=== PATIENT | female | born 1970 | race Caucasian/White ===

== ENCOUNTER 2020-09-21 07:57 | Inpatient (IN) | payer OTHER ==
[~2020-09-21] VITALS: Ht 165.1 cm; Wt 70.0 kg
[~2020-09-21 07:57] MED LIST: BACTRIM DS1 TAB OR; NAPROSYN500 MG PO; NO; OMEPRAZOLE20 MG PO
--- NOTE | 2020-09-21 07:57 | NUR ---
PT ARRIVES VIA EMS STRETCHER TO ROOM # 11.
[2020-09-21 08:44] LABS: HEMATOCRIT 32.2 % (37.0-47.0); HEMOGLOBIN 10.1 g/dl (12.0-16.0); IMMATURE GRANULOCYTES 0.5 % (0.0-5.0); MEAN CELL VOLUME 95.3 fL CALC (80.0-100.0); MEAN CORPUSCULAR HGB 29.9 pG CALC (26.0-32.0); MEAN CORPUSCULAR HGB CONC 31.4 g/dL CAL (32.0-36.0); NEUT# 2.36 thou/uL (2.00-7.15); RED BLOOD COUNT 3.38 mill/uL (4.20-5.60); RED CELL DISTRI WIDTH 14.8 % (11.5-15.5)
--- NOTE | 2020-09-21 09:00 | NUR ---
0758 - PATIENT ARRIVED VIA EMS STRETCHER,IGEL IN PLACE. PULSE PALPATED. MD AT BEDSIDE BP:109/69, HR 57. O2 SAT 100% WITH MANUAL AMBU BAG.RT AT BEDSIDE. 0805: Intubated by RT.
[2020-09-21 09:08] LABS: ALBUMIN 3.9 g/dL (3.2-5.0); ALKALINE PHOSPHATASE 86 u/l (38-126); BILIRUBIN, TOTAL 0.3 mg/dL (0.0-1.4); BUN 9 mg/dL (7-17); BUN/CREATININE RATIO 10 (12-20 (CALC)); CARBON DIOXIDE 20 mmol/l (22-30); CHLORIDE 100 mmol/l (95-108); CREATININE 0.9 mg/dL (0.5-1.0); GFR > 60 ML/MIN (>=60 (CALC)); GFR FOR AFR.AMER. > 60 ML/MIN (>=60 (CALC)); SGOT/AST 105 u/l (14-36); SODIUM 135 mmol/l (137-146); TOTAL PROTEIN 7.3 g/dL (6.3-8.2)
--- NOTE | 2020-09-21 09:09 | NUR ---
0805: INTUBATED BY RT WITH A 7.5 ROMANSH ET TUBE AT 22 AT LIP after Rakesh given. 0810: Medicated with [id number] FOR OCCASSIONAL EMESIS. SUCTION NEEDED. 0812: IV DIPROVAN STARTED AT 30 MCG. 0825 PAORTABLE XRAY COMPLETED 08 RT TOO BEDSIDE,ADVANCES ETT TO 24 AT THE LIP. 0830 16 FR COTTRELL INSERTED USING STERILE TECHNIQUES. IMMEDIATE RETURN OF CLEAR URINE. 0835 ABG COMPLETED. 0837: IZZY CARE AND LINEN CHANGE. 0840 NG #16 FR INSERTED IN RIGHT NARE. PLACEMENT VERIFIED BY 2 RNS. 0847; URINE TO LAB. 0900: MD TO BEDSIDE. BP NOTED TO BE 54/30. ORDERS GIVEN. 0905: IV #20 IN RIGHT WRIST COMMENCED. 09: DIPROVAN DECREASED TO 15MCG BY RN.
[2020-09-21 09:10] LABS: ANION GAP 18 (6-22 (CALC))
[2020-09-21 09:12] LABS: INTERNATIONAL NORMALIZED RATIO 1.1 RATIO (0.7-1.3); PROTHROMBIN TIME 11.1 SECONDS (9.0-12.5)
--- NOTE | 2020-09-21 09:25 | NUR ---
Provider at bedside to evaluate. BP 63/34. PHENELYPHTINE HCL COMMENCED IV.
[2020-09-21 09:27] LABS: ETHYL ALCOHOL 355 mg/dl (0-30)
[2020-09-21 09:45] LABS: URINE BILIRUBIN - DIPSTICK NEGATIVE (NEGATIVE); URINE BLOOD DIPSTICK NEGATIVE (NEGATIVE); URINE CLARITY CLEAR; URINE COLOR YELLOW; URINE GLUCOSE - DIPSTICK NEGATIVE (NEGATIVE); URINE KETONE NEGATIVE (NEGATIVE); URINE LEUK ESTERASE NEGATIVE (Negative); URINE NITRITE - DIPSTICK NEGATIVE (Negative); URINE PROTEIN - DIPSTICK NEGATIVE (NEG-TRACE); URINE SPECIFIC GRAVITY <=1.005; URINE UROBILINOGEN - DIPSTICK 0.2 E.U./dL (0.2)
--- NOTE | 2020-09-21 09:51 | NUR ---
BP IMPROVED, MAP >60 SEE VS INTERVENTION FOR DETAILS.
--- NOTE | 2020-09-21 10:38 | NUR ---
RESPIRATORY AND ELEVATOR MECHANIC PRESENT TO TAKE PATIENT TO CT. PATIENT STABLE. PATIENT A BIT RESTLESS. DIPROVAN INCREASED TO 30MCG. CARDIAC MONIOTORING CONTINUES.
--- NOTE | 2020-09-21 11:10 | NUR ---
RETURNED FROM XRAY. PATIENT STABLE. MONITORING OF V/S CONTINUES.
--- NOTE | 2020-09-21 11:15 | NUR ---
PATIENT NOTED TO BE RESTLESS. DIPROVAN INCREASED TO 40MCG.BP: 110/63,P-72
--- NOTE | 2020-09-21 11:45 | NUR ---
Pateint resting quietly. Slight movements at times. Bp 83/40,p-71. Diprovan decreased to 25 mcg following consultation with charge nurse.
--- NOTE | 2020-09-21 11:55 | NUR ---
PATIENT NOTED TO BE RESTLESS AND REQUIRING SUCTION. CHARGE NURSE TO BEDSIDE TO ASSIST. BP: 79/40, P-61 Phenylephrine increased titration to 0.5 mcg. Diprovan incaresaed to 40 mcg. Respiratory notified.
--- NOTE | 2020-09-21 12:50 | NUR ---
DR BUCHANAN [facility] FOR EVAL.
--- NOTE | 2020-09-21 13:31 | NUR ---
FIO2 DECREASED TO 40%
--- NOTE | 2020-09-21 14:20 | NUR ---
PATIENT TRANSFERRED TO TRANSPORT ROOM CARE.
--- NOTE | 2020-09-21 15:07 | NUR ---
RT AT BEDSIDE. PATIENT STABLE.
--- NOTE | 2020-09-21 15:25 | NUR ---
PT ON PROPOFOL AND REMAINS FIDGETY AND ANXIOUS AWARE AND NEW ORDERS REC'D WILL MEDICATE ORDERED
--- NOTE | 2020-09-21 15:25 | NUR ---
MORPHINE 2MG IVP FOR S/S 10/10 GENERALIZED PAIN.
--- NOTE | 2020-09-21 15:35 | NUR ---
MIDAZOLAM GTT INITIATED PER PROTOCOL.
--- NOTE | 2020-09-21 15:36 | NUR ---
ATIVAN GTT INITIATED PER PROTOCOL.
--- NOTE | 2020-09-21 16:00 | NUR ---
PATIENT MONITORING CONTINUES. IV SITES INTACT AND HEALTHY WHEN EVALUATED HOURLY. COTTRELL CATHETER EMPTIED FOR 1000 CC CLEAR URINE.
--- NOTE | 2020-09-21 16:30 | NUR ---
PATIENT RESTING. MONITORING CONTINUES.
--- NOTE | 2020-09-21 17:00 | NUR ---
PATIENT QUIET. NO DISTRESS. MONITORING CONTINUES
--- NOTE | 2020-09-21 17:42 | NUR ---
ball drained 1000cc clear urine
--- NOTE | 2020-09-21 18:31 | NUR ---
PATIENT RESTING QUIETLY. NO DISTRESS. CARDIAC MONITORING CONTINUES WITH RESULTS WNL, IV SITES HEALTHY. COTTRELL INTACT AND DRAINING CLEAR URINE.
--- NOTE | 2020-09-21 18:50 | NUR ---
REPORT GIVEN TO RAFAT LY.
--- NOTE | 2020-09-21 18:56 | NUR ---
RECUMBENT W/P/D SKIN F PT ON VENT AC 16/M [id number] FIO2 40% CECILIA AT 2CM COTTRELL HAS 300CC LT YELLOW DRAINAGE.PT HAS SOFT BILAT WRIST RESTRAINTS.CLDEAR BILAT BREATH SOUNDS.ABD SOFT NONTENDER ACTIVE SOUNDS X2 IV PROPOFOL DRIP TO #18 LAC AT 70MCG/KG/MIN.MIDAZOLAM DRIP 10MLS MID/100CC NS AT 10MLS/HR #22 RAC.PHENYLEPHRINE [id number] NSS AT 52.5 ML/HR #20 RW
--- NOTE | 2020-09-21 19:38 | NUR ---
NG IS TO LIS NO LIQUIDS IN SUCTION CANISTER AT THIS TIME.CLEAR BILAT BREATH SOUNDS.
--- NOTE | 2020-09-21 20:10 | NUR ---
PT TRANSFERREWD TO HOSP BED
--- NOTE | 2020-09-21 21:10 | NUR ---
REPOSITIONED TO R SIDE SR NO ST T CHANAGES VENT TO ET TUBE FIO2 40% CLEAR BILOAT BREAT SOUNDS.W/P/D SKIN
--- NOTE | 2020-09-21 21:35 | NUR ---
SR NO ECTOPY SEDATED PEDRLA AT 2CMS WARM BLANKET APPLIED.
--- NOTE | 2020-09-21 22:49 | NUR ---
CLEAR BILAT BREATH SOUNDS SR NO ST T CHANGES NO ECTOPY W/P/D SKIN.
--- NOTE | 2020-09-21 23:15 | NUR ---
TURNED TO L SIDE LYING SR NO ECTOPY SEDATED CECILIA. DRIPS X3 RATES UNCHANGED
[2020-09-22] VITALS (13 sets, daily range): BP systolic 85–148; BP diastolic 33–106
--- NOTE | 2020-09-22 01:00 | NUR ---
TURENED TO R SIDE LYING SR NO ST T CHANGES BILAT BREATAH SOUNDS CLEAR .COTTRELL DRAINS YELLOW URINE QS
--- NOTE | 2020-09-22 02:05 | NUR ---
W/P/D SKIN SR NO ST T CHANGES.PT OCC PULLS AAT SOFT WRIST RESTRAINS
--- NOTE | 2020-09-22 03:00 | NUR ---
W/P/D SKIN TURNED R SIDE LYING SR NO ECTOPY CECILIA.
--- NOTE | 2020-09-22 04:10 | NUR ---
W/P/D SKIN CLEAR BILAT BREATAH SOUNDS.CECILIA
--- NOTE | 2020-09-22 05:00 | NUR ---
SEDAATED W/P/D SKIN BREAATH SOUNDS CLEAR
--- NOTE | 2020-09-22 05:54 | NUR ---
SUCTIONED PER ET FOR MOD AMT KO SECRETIONS.TURNED R SIDE LYING
[2020-09-22 06:43] LABS: HEMATOCRIT 33.3 % (37.0-47.0); HEMOGLOBIN 10.7 g/dl (12.0-16.0); MEAN CELL VOLUME 95.4 fL CALC (80.0-100.0); MEAN CORPUSCULAR HGB 30.7 pG CALC (26.0-32.0); MEAN CORPUSCULAR HGB CONC 32.1 g/dL CAL (32.0-36.0); RED BLOOD COUNT 3.49 mill/uL (4.20-5.60); RED CELL DISTRI WIDTH 15.2 % (11.5-15.5)
[2020-09-22 06:58] LABS: ALBUMIN 3.6 g/dL (3.2-5.0); ALKALINE PHOSPHATASE 100 u/l (38-126); ANION GAP 12 (6-22 (CALC)); BILIRUBIN, TOTAL 0.4 mg/dL (0.0-1.4); BUN 9 mg/dL (7-17); BUN/CREATININE RATIO 14 (12-20 (CALC)); CARBON DIOXIDE 23 mmol/l (22-30); CHLORIDE 108 mmol/l (95-108); CREATININE 0.6 mg/dL (0.5-1.0); GFR > 60 ML/MIN (>=60 (CALC)); GFR FOR AFR.AMER. > 60 ML/MIN (>=60 (CALC)); MAGNESIUM 1.7 mg/dL (1.6-2.3); SGOT/AST 71 u/l (14-36); SODIUM 139 mmol/l (137-146); TOTAL PROTEIN 7.1 g/dL (6.3-8.2)
[2020-09-22 06:59] LABS: POTASSIUM 3.8 mmol/l (3.5-5.1)
--- NOTE | 2020-09-22 07:07 | NUR ---
PTR REPORT TO MALACHI BEARDEN
--- NOTE | 2020-09-22 07:25 | NUR ---
PTRESTING INB ED, INTUBATED WITH 7.5 ETT TAPED AT 24 AT THE LIP SEE FLOW SHEET FOR VENT SETTINGS, RESTRAINTS IN PLACE TO PREVENT SELF EXTUBATION, VS STABLE, PROPOFOL, VERSED AND PHENYLNEPHRINE INFUSING PER RPROTOCOL SEE INTERVENTION FOR DETAILS, COTTRELL CATH INTACT DRAINING CLEAR YELLOW URINE AND NG INTACT IN R NARE WITH MINIMAL CLEAR DRNG. ORALLY SUCTIONED PRN, NO S/S OF PAION NOTED, CALL CHEN WIHTIN REACH, TURNED Q2H WITH ORAL CARE PROVIDED, EASILY VISIBLE FROM NURSES STATION FOR SAFETY, WILL CONTINUE TO MONITOR
--- NOTE | 2020-09-22 09:40 | NUR ---
PT EXTUBATED , R.T REMAINS AT BEDSIDE PT TOLERATED W/O INCIDENT, NG REMIANS INTACT, WILL CONTINUE TO MONITOR CLOSELY
--- NOTE | 2020-09-22 09:40 | NUR ---
PT EXTUBATED AND PLACED ON 2L NC
--- NOTE | 2020-09-22 10:27 | NUR ---
POLICE AT BEDSIDE TO SPEAK WITH PT
--- NOTE | 2020-09-22 11:57 | NUR ---
FLU AND COVID SWABS OBTAINED PT REMAINS ON ISOLATION
--- NOTE | 2020-09-22 13:04 | NUR ---
PT DOZING INTERMITTENLY, AROUSES TO VERBAL STIMULI, NO NEW COMPLAINTS, OFFERED, TAKING SIPS OF WATER WITHOUT INCIDENT.
--- NOTE | 2020-09-22 14:15 | NUR ---
PT RESTING REMAINS DROWSY BUT AROUSES TO VERBAL STIMULI AND ANSWERS QUESTIONS APPROPRIAETLY, CONTINEUS TO HAVE MINIMAL DIFFICULTY TALKING RELATED TO EXRTUBATION. SATS MAINTAINED AT 99-100% ON 2L WITH NO SOB OR DISTRESS NOTED. CALL CHEN WITHIN REACH
--- NOTE | 2020-09-22 15:24 | NUR ---
PT RESTING AWARE OF PLANNED ADMISSION TO MED SURG NOW NO TELE, OFFERS NO NEW COMPLAINTS, REMAINS DROWSY BUT AROUSABLE
--- NOTE | 2020-09-22 16:05 | NUR ---
REPORT CALLED TO GARY ON MED SURG ROOM 260 ASSIGNED
--- NOTE | 2020-09-22 16:13 | NUR ---
PT ARRIVED TO [facility] ROOM 260 VIA BED IN STABLE CONDITION ACCOMPAINED BY ER STAFF. WRITTER INFORMED THAT PT WILL BE PLACE IN ROOM 260 DESPITE IGG POSITIVE BEACUSE PT HAS HAD NO SYMPTOMS UPON ADMINISION BY ER STAFF AND GROUP CIO. INTRODUCED SELF TO PT AND DISCUSSED POC. PT IS A/O BUT DROWSY. ASSESSMENT AND VITALS OBATINED. BP 118/73, HR 86, O2 98% ON ROOM AIR. RESPIRATIONS ARE EVEN AND UNLABORED ON ROOM AIR. PT COMPLAINS OF DISCOMFORT IN THROAT AND CHEST. WRITTER EXPLAINED THAT THE DISCOMFORT WILL BE THERE FOR A WHILE DUE TO BEING INTUBATED. HEART RHYTHM NORMAL. BOWEL SOUNDS ARE ACTIVE. LAST BM UNKNOWN. #22G IN LAC; #22G IN RAC, #22G IN RAC FLUSHED, ALL SITE APPEARS HEALTHY AND PATENT. PT PRESENTS WITH SMALL BUMP/STYE. PT INFORMS WRITTER THAT SHE DID NOT HAVE IT BEFORE THE ACCIDENT. PICTURES TO BE OBTAINED. PT DENIES ANY ADDITIONAL NEEDS AT THIS TIME. ALL SAFETY PRECAUTIONS ARE IN PLACE WITH CALL LIGHT IN REACH.DOOR TO REMAIN CLOSED. WILL CONTINUE TO MONITOR
--- NOTE | 2020-09-22 16:15 | NUR ---
PT TRANSFERRED TO MED SURG VIA BED, ALL BELONGINGS SENT WITH PATIENT. RECIEVING NURSE AT BEDSIDE ON ARRIVAL
--- NOTE | 2020-09-22 18:15 | NUR ---
PHOTOS OF RIGHT EYE OBTAINED AND PLACED IN CHART. PT REFUSES DINNER TRAY STATING " I CANT EAT THAT, MY THOART IS TOO SORE." SOFT TRAY OFFERED. PT REFUSED. PT REQUESTED ICE CREAM. COTTRELL CATHATER REMAINS IN PLACE WITH TUBING UNOBSTRUCTED. PT DENIES ANY ADDITIONAL NEEDS AT THSI TIME. ALL SFAETY PRECAUTIONS ARE IN PLACE WITH CALL LIGHT IN REACH. WILL CONTINUE TO MONITOR
--- NOTE | 2020-09-22 20:01 | NUR ---
PHYSICAL ASSESMENT COMPLETE. PT CURRENTLY DENIES PAIN OR DISCOMFORT. SCHEDULED MEDICATIONS AND PRN MEDICATION ADMINISTERED, SEE E-MAR. PT DENIES ANY NEEDS AT THIS TIME. PLAN OF CARE REVIEWED, PT DENIES QUESTIONS, VERBALIZES UNDERSTANDING. ITEMS WITHIN REACH, BED LOCKED IN LOW POSITION W/ BEDRAILS UP X2. CALL CHEN WITHIN REACH, AGREES TO CALL PRN.
--- NOTE | 2020-09-23 00:01 | NUR ---
PT LAYING IN BED WITH EYES CLOSED, APPEARS TO BE SLEEPING, APPEARS COMFORTABLE AND IN NO DISTRESS. RESPIRATIONS REGULAR AND UNLABORED. ITEMS REMAIN WITHIN REACH, CALL CHEN REMAINS WITHIN REACH. BED REMAINS LOCKED AND IN LOW POSITION WITH BEDRAILS UP X2. WILL CONTINUE TO MONITOR.
[2020-09-23 04:00] VITALS: BP 132/79
--- NOTE | 2020-09-23 04:01 | NUR ---
PT RESTING IN BED, NO SIGNS OF DISTRESS NOTED, RESP EVEN AND UNLABORED. PT VOICES NO NEEDS OR COMPLAINTS AT THIS TIME. CALL LIGHT IN REACH,CONTINUE TO MONITOR.
--- NOTE | 2020-09-23 07:15 | NUR ---
Patient is screened for PT intervention and no needs are identified at this time
[2020-09-23 07:46] VITALS: BP 117/72
--- NOTE | 2020-09-23 07:46 | NUR ---
PATIENT IN BED AT THIS TIME CALL LIGHT NEAR, SIDERAILS UP X2. PATIENT EDUCATED ON USING CALL LIGHT WHEN GETTING UP TO GO TO THE BATHROOM. PATIENT EMS LAC IV SITE REMOVED WITHOUT ANY ISSUES. PATIENT VERBALIZES ALL INSTRUCTIONS AND DENIES ANY NEEDS AT THIS TIME. PATIENT DOES EXHIBIT DRY COUGH AT THIS TIME/NON PRODUCTIVE.
--- NOTE | 2020-09-23 08:05 | NUR ---
AT BEDSIDE DISCUSSING POC.
--- NOTE | 2020-09-23 12:00 | NUR ---
PATIENT UP TO BATHROOM WITH ASSIST BY MALACHI BO. PATIENT VOIDED 450 ML OF YELLOW URINE AT THIS TIME. PATIENT DENIES ALL NEEDS AND STATED IT FEELS GOOD TO GET UP AND MOVE AROUND". PATIENT ASSISTED BACK TO BED AT THIS TIME.
--- NOTE | 2020-09-23 14:05 | NUR ---
PATIENT D/C AT THIS TIME. PATIENT VERBALIZES UNDERSTANDING OF D/C INSTRUCTIONS.
--- NOTE | 2020-09-23 14:37 | NUR ---
Discharge instructions given. Patient verbalizes understanding of same. Discharged in stable condition via Wheelchair to Home with family. All belongings sent with pt. PT TRANSPORTED TO [facility] IN STABLE CONDITION VIA WHEELCHAIR ACCOMPANIED BY FAMILY MEMBER AND JOSÉ MIGUEL SCALES. ALL BELONGINGS LEFT WITH PT.FAMILY MEMBER TO TRANSPORT HOME.
== END 2020-09-23 14:37 | disposition home or self-care (01) | DRG 208 ==
LOC: EDBD 07:57 → ED 07:57 → ED-I 12:37 → ED 13:14 → ED-I 13:15 → MS2 13:15 → ICU 09-22 13:43 → MS2 09-22 16:16
PROVIDERS: Emergency Medicine; ADMIT Internal Medicine; ATTEND Internal Medicine
PROC: 5A1945Z Respiratory Ventilation, 24-96 Consecutive Hours (ICD-10-PCS; principal; 2020-09-21)
PROC: 0BH17EZ Insertion of Endotracheal Airway into Trachea, Via Natural or Artificial Opening (ICD-10-PCS; 2020-09-21)
DX: J96.00 Acute respiratory failure, unspecified whether with hypoxia or hypercapnia (principal); G93.49 Other encephalopathy; F10.129 Alcohol abuse with intoxication, unspecified; Y90.8 Blood alcohol level of 240 mg/100 ml or more; F14.10 Cocaine abuse, uncomplicated; V49.40XA Driver injured in collision with unspecified motor vehicles in traffic accident, initial encounter
CPT/HCPCS: J1650; Q9967

== ENCOUNTER 2023-04-12 11:10 | Emergency (ER) | payer SELFPAY ==
[~2023-04-12] VITALS: Ht 165.1 cm; Wt 68.0 kg
[2023-04-12] VITALS (16 sets, daily range): BP systolic 125–163; BP diastolic 69–99
[2023-04-12 12:14] LABS: BASO% 0.2 % (0-3); EOS% 1.1 % (0-8); IMMATURE GRANULOCYTES 0.2 % (0.0-5.0); LYMPH% 20.2 % (15-41); MEAN CORPUSCULAR HGB 30.9 pG CALC (26.0-32.0); MEAN CORPUSCULAR HGB CONC 31.2 g/dL CAL (32.0-36.0); MONO% 14.5 % (2-13); NEUT# 5.38 thou/uL (2.00-7.15); NEUT% 63.8 % (42-76); RED BLOOD COUNT 4.14 mill/uL (4.20-5.60)
[2023-04-12 12:20] LABS: HEMOGLOBIN 12.8 g/dl (12.0-16.0)
[2023-04-12 12:39] LABS: ALBUMIN 3.7 g/dL (3.2-5.0); ALKALINE PHOSPHATASE 175 u/l (38-126); ANION GAP 16 (6-22 (CALC)); BUN 14 mg/dL (7-17); BUN/CREATININE RATIO 20 (12-20 (CALC)); CARBON DIOXIDE 18 mmol/l (22-30); CHLORIDE 105 mmol/l (95-108); CREATININE 0.7 mg/dL (0.5-1.0); GFR FOR AFR.AMER. > 60 ML/MIN (>=60 (CALC)); GFR OTHER RACES > 60 ML/MIN (>=60 (CALC)); SGOT/AST 109 u/l (14-36); SODIUM 134 mmol/l (137-146); TOTAL PROTEIN 8.3 g/dL (6.3-8.2)
[2023-04-12 15:11] LABS: URINE BILIRUBIN - DIPSTICK NEGATIVE (NEGATIVE); URINE BLOOD DIPSTICK NEGATIVE (NEGATIVE); URINE COLOR YELLOW; URINE GLUCOSE - DIPSTICK NEGATIVE (NEGATIVE); URINE KETONE NEGATIVE (NEGATIVE); URINE LEUK ESTERASE NEGATIVE (NEGATIVE); URINE NITRITE - DIPSTICK POSITIVE (Negative); URINE PH 6.5 (4.5-8.0); URINE PROTEIN - DIPSTICK NEGATIVE (NEG-TRACE); URINE SPECIFIC GRAVITY <=1.005; URINE UROBILINOGEN - DIPSTICK 0.2 E.U./dL (0.2)
[2023-04-12 15:23] LABS: URINE BACTERIA MANY hpf; URINE SQUAMOUS EPITHELIAL CELL FEW EPI/hpf (0-FEW); URINE WBC 0-2 WBC/hpf (0-5)
== END 2023-04-12 22:43 | disposition short-term general hospital (02) | DRG 863 ==
LOC: ED 11:10 → MS2 14:30 → ED 14:30 → MS2 14:30 → ED 22:43
PROVIDERS: Nurse Practitioner
DX: T81.41XA Infection following a procedure, superficial incisional surgical site, initial encounter (principal); Y83.8 Other surgical procedures as the cause of abnormal reaction of the patient, or of later complication, without mention of misadventure at the time of the procedure; F17.200 Nicotine dependence, unspecified, uncomplicated; R82.71 Bacteriuria
CPT/HCPCS: Q9967

== ENCOUNTER 2023-04-20 01:22 | Emergency (ER) | payer SELFPAY ==
[~2023-04-20] VITALS: Ht 152.4 cm; Wt 85.0 kg
[2023-04-20 03:38] VITALS: BP 164/94
[2023-04-20] MEDS ORDERED: PROZAC20 MG PO (04:48)
[2023-04-20] MEDS ORDERED: KEFLEX500 MG PO (04:49)
== END 2023-04-20 03:38 | disposition home or self-care (01) | DRG 951 ==
LOC: ED 01:22
DX: Z48.01 Encounter for change or removal of surgical wound dressing (principal); F17.200 Nicotine dependence, unspecified, uncomplicated

== ENCOUNTER 2023-04-26 10:22 | Emergency (ER) | payer SELFPAY ==
[~2023-04-26] VITALS: Ht 152.4 cm; Wt 69.0 kg
[2023-04-26] VITALS (14 sets, daily range): BP systolic 129–166; BP diastolic 66–88
[~2023-04-26 10:22] MED LIST changes: +KEFLEX500 MG PO; +PROZAC20 MG PO
[2023-04-26 12:26] LABS: ALBUMIN 3.9 g/dL (3.2-5.0); BASO% 0.4 % (0-3); BILIRUBIN, TOTAL 0.6 mg/dL (0.02-1.3); CREATININE 1.5 mg/dL (0.5-1.0); EOS% 2.1 % (0-8); HEMATOCRIT 39.5 % (37.0-47.0); HEMOGLOBIN 12.8 g/dl (12.0-16.0); IMMATURE GRANULOCYTES 0.3 % (0.0-5.0); LYMPH% 28.2 % (15-41); MEAN CELL VOLUME 96.8 fL CALC (80.0-100.0); MEAN CORPUSCULAR HGB 31.4 pG CALC (26.0-32.0); MEAN CORPUSCULAR HGB CONC 32.4 g/dL CAL (32.0-36.0); MONO% 11.9 % (2-13); NEUT# 3.98 thou/uL (2.00-7.15); NEUT% 57.1 % (42-76); POTASSIUM 4.4 mmol/l (3.5-5.1); RED BLOOD COUNT 4.08 mill/uL (4.20-5.60); RED CELL DISTRI WIDTH 14.5 % (11.5-15.5); TOTAL PROTEIN 8.1 g/dL (6.3-8.2)
== END 2023-04-26 15:57 | disposition short-term general hospital (02) | DRG 603 ==
LOC: ED 10:22
PROVIDERS: Family Medicine
DX: L02.211 Cutaneous abscess of abdominal wall (principal); S31.115A Laceration without foreign body of abdominal wall, periumbilic region without penetration into peritoneal cavity, initial encounter; W26.9XXA Contact with unspecified sharp object(s), initial encounter
CPT/HCPCS: Q9967

== ENCOUNTER 2023-05-06 22:21 | Emergency (ER) | payer SELFPAY ==
[~2023-05-06] VITALS: Ht 152.4 cm; Wt 70.0 kg
[2023-05-06 22:32] VITALS: BP 151/92
[2023-05-06 22:51] LABS: BASO% 0.6 % (0-3); EOS% 2.3 % (0-8); HEMATOCRIT 35.2 % (37.0-47.0); HEMOGLOBIN 11.6 g/dl (12.0-16.0); IMMATURE GRANULOCYTES 0.2 % (0.0-5.0); LYMPH% 48.2 % (15-41); MEAN CELL VOLUME 95.1 fL CALC (80.0-100.0); MEAN CORPUSCULAR HGB 31.4 pG CALC (26.0-32.0); MONO% 13.2 % (2-13); NEUT# 1.67 thou/uL (2.00-7.15); NEUT% 35.5 % (42-76); RED BLOOD COUNT 3.7 mill/uL (4.20-5.60); RED CELL DISTRI WIDTH 13.9 % (11.5-15.5)
[2023-05-06 23:00] VITALS: BP 140/88
[2023-05-06 23:00] LABS: URINE BILIRUBIN - DIPSTICK NEGATIVE (NEGATIVE); URINE BLOOD DIPSTICK NEGATIVE (NEGATIVE); URINE COLOR YELLOW; URINE GLUCOSE - DIPSTICK NEGATIVE (NEGATIVE); URINE KETONE NEGATIVE (NEGATIVE); URINE LEUK ESTERASE NEGATIVE (NEGATIVE); URINE PROTEIN - DIPSTICK NEGATIVE (NEG-TRACE); URINE UROBILINOGEN - DIPSTICK 0.2 E.U./dL (0.2)
[2023-05-06 23:03] LABS: URINE NITRITE - DIPSTICK NEGATIVE (Negative)
[2023-05-06 23:09] LABS: ALBUMIN 3.6 g/dL (3.2-5.0); ALKALINE PHOSPHATASE 81 u/l (38-126); ANION GAP 17 (6-22 (CALC)); BUN 10 mg/dL (7-17); BUN/CREATININE RATIO 14 (12-20 (CALC)); CARBON DIOXIDE 16 mmol/l (22-30); CHLORIDE 106 mmol/l (95-108); CREATININE 0.7 mg/dL (0.5-1.0); ETHYL ALCOHOL 219 mg/dl (0-30); GFR FOR AFR.AMER. > 60 ML/MIN (>=60 (CALC)); GFR OTHER RACES > 60 ML/MIN (>=60 (CALC)); LIPASE 503 u/l (23-300); MAGNESIUM 1.6 mg/dL (1.6-2.3); POTASSIUM 3.6 mmol/l (3.5-5.1); SGOT/AST 43 u/l (14-36); SODIUM 135 mmol/l (137-146); TOTAL PROTEIN 7.2 g/dL (6.3-8.2)
[2023-05-06 23:11] LABS: BILIRUBIN, TOTAL 0.3 mg/dL (0.02-1.3)
[2023-05-06 23:31] VITALS: BP 162/94
[2023-05-07 00:31] VITALS: BP 149/86
[2023-05-07] MEDS ORDERED: TYLENOL # 31 TA1 PO (02:07)
[2023-05-07 04:21] VITALS: BP 152/92
== END 2023-05-07 02:20 | disposition home or self-care (01) | DRG 920 ==
LOC: ED 22:21
PROVIDERS: Family Medicine
DX: T81.31XA Disruption of external operation (surgical) wound, not elsewhere classified, initial encounter (principal); K86.0 Alcohol-induced chronic pancreatitis; F10.129 Alcohol abuse with intoxication, unspecified; F19.10 Other psychoactive substance abuse, uncomplicated; F32.9 Major depressive disorder, single episode, unspecified; Y90.8 Blood alcohol level of 240 mg/100 ml or more; Y83.8 Other surgical procedures as the cause of abnormal reaction of the patient, or of later complication, without mention of misadventure at the time of the procedure
CPT/HCPCS: Q9967

== ENCOUNTER 2023-05-15 19:30 | Emergency (ER) | payer SELFPAY ==
[~2023-05-15] VITALS: Ht 152.4 cm; Wt 63.6 kg
[~2023-05-15 19:30] MED LIST changes: +TYLENOL # 31 TA1 PO
[2023-05-15 20:20] LABS: BASO% 0.1 % (0-3); HEMATOCRIT 35.1 % (37.0-47.0); HEMOGLOBIN 12.1 g/dl (12.0-16.0); IMMATURE GRANULOCYTES 0.2 % (0.0-5.0); LYMPH% 13.4 % (15-41); MEAN CELL VOLUME 92.6 fL CALC (80.0-100.0); MEAN CORPUSCULAR HGB 31.9 pG CALC (26.0-32.0); MEAN CORPUSCULAR HGB CONC 34.5 g/dL CAL (32.0-36.0); MONO% 13.2 % (2-13); NEUT# 7.72 thou/uL (2.00-7.15); NEUT% 73.1 % (42-76); RED BLOOD COUNT 3.79 mill/uL (4.20-5.60); RED CELL DISTRI WIDTH 13.5 % (11.5-15.5)
[2023-05-15 20:31] LABS: ALBUMIN 3.7 g/dL (3.2-5.0); AMYLASE 53 u/l (30-110); ANION GAP 14 (6-22 (CALC)); BUN 13 mg/dL (7-17); BUN/CREATININE RATIO 14 (12-20 (CALC)); CARBON DIOXIDE 18 mmol/l (22-30); CHLORIDE 103 mmol/l (95-108); CREATININE 0.9 mg/dL (0.5-1.0); GFR FOR AFR.AMER. > 60 ML/MIN (>=60 (CALC)); GFR OTHER RACES > 60 ML/MIN (>=60 (CALC)); SODIUM 133 mmol/l (137-146); TOTAL PROTEIN 7.9 g/dL (6.3-8.2)
[2023-05-15 20:36] LABS: ALKALINE PHOSPHATASE 157 u/l (38-126); SGOT/AST 118 u/l (14-36)
[2023-05-15 21:10] VITALS: BP 125/72
[2023-05-15 21:15] VITALS: BP 127/69
[2023-05-15 21:30] VITALS: BP 129/76
[2023-05-15 22:00] VITALS: BP 123/78
[2023-05-15] MEDS ORDERED: KEFLEX500 MG PO (22:46)
[2023-05-15] MEDS ORDERED: BACTRIM DS1 TAB PO (22:46)
[2023-05-15] MEDS ORDERED: LORTAB 1010 MG PO (23:16)
[2023-05-15 23:30] VITALS: BP 123/78
== END 2023-05-15 23:30 | disposition home or self-care (01) | DRG 921 ==
LOC: ED 19:30
PROVIDERS: Emergency Medicine
DX: T81.89XA Other complications of procedures, not elsewhere classified, initial encounter (principal); Y83.8 Other surgical procedures as the cause of abnormal reaction of the patient, or of later complication, without mention of misadventure at the time of the procedure; Z20.822 Contact with and (suspected) exposure to COVID-19
CPT/HCPCS: Q9967

== ENCOUNTER 2023-12-15 21:57 | Emergency (ER) | payer MEDICAID ==
[~2023-12-15 21:57] MED LIST changes: +BACTRIM DS1 TAB PO; +LORTAB 1010 MG PO
== END 2023-12-15 23:10 | disposition left against medical advice (07) | DRG 951 ==
LOC: ED 21:57 → LWOBS 22:40
DX: Z53.21 Procedure and treatment not carried out due to patient leaving prior to being seen by health care provider (principal)

== ENCOUNTER 2024-07-01 12:57 | Emergency (ER) | payer OTHER ==
[~2024-07-01] VITALS: Ht 152.4 cm; Wt 77.1 kg
[2024-07-01] MEDS ORDERED: HYDROcodone 5 MG/Acetaminophen 325 MG/COMBO PO ONE (13:20)
[2024-07-01] MEDS ORDERED: Diph, Acellular Pertussis, Tet 0.5 ML/VIAL (Tdap) SDV IM ONE (13:20)
[2024-07-01] MEDS ORDERED: MORPHINE SULFATE 4 MG/ML VIAL IV ONE (13:35)
[2024-07-01 13:48] LABS: BASO% 0.2 % (0-3); EOS% 0.1 % (0-8); HEMATOCRIT 33.9 % (37.0-47.0); HEMOGLOBIN 11.2 g/dl (12.0-16.0); IMMATURE GRANULOCYTES 0.1 % (0.0-5.0); LYMPH% 19.3 % (15-41); MEAN CELL VOLUME 94.4 fL CALC (80.0-100.0); MEAN CORPUSCULAR HGB 31.2 pG CALC (26.0-32.0); MONO% 10.8 % (2-13); NEUT# 9.16 thou/uL (2.00-7.15); NEUT% 69.5 % (42-76); RED BLOOD COUNT 3.59 mill/uL (4.20-5.60); RED CELL DISTRI WIDTH 15.7 % (11.5-15.5)
[2024-07-01 13:54] LABS: ALBUMIN 4.5 g/dL (3.2-5.0); POTASSIUM 3.9 mmol/l (3.5-5.1); TOTAL PROTEIN 8.5 g/dL (6.3-8.2)
[2024-07-01 13:56] LABS: BILIRUBIN, TOTAL 0.5 mg/dL (0.02-1.3)
[2024-07-01 14:25] VITALS: BP 118/64
== END 2024-07-01 14:26 ==
LOC: ED 12:57
PROVIDERS: Nurse Practitioner Family
DX: T23.351A Burn of third degree of right palm, initial encounter (principal); T23.361A Burn of third degree of back of right hand, initial encounter; T23.311A Burn of third degree of right thumb (nail), initial encounter; T31.0 Burns involving less than 10% of body surface; X04.XXXA Exposure to ignition of highly flammable material, initial encounter; X06.2XXA Exposure to ignition of other clothing and apparel, initial encounter